=== PATIENT | female | born 1985 ===

== ENCOUNTER 2020-04-23 13:00 | Inpatient (IN) | payer OTHER ==
[~2020-04-23] VITALS: Ht 167.6 cm; Wt 83.5 kg
[2020-05-12] MEDS ORDERED: PRENATAL CAPLE1 EAC1 PO (16:34)
== END 2020-05-15 14:43 | disposition home or self-care (01) | DRG 807 ==
LOC: OB/GYN 05-12 13:00 → LDR 05-12 16:03 → OB/GYN 05-13 14:40 → O/R 05-13 16:46 → OB/GYN 05-13 16:47
PROVIDERS: ADMIT Obstetrics & Gynecology Maternal & Fetal Medicine; ATTEND Obstetrics & Gynecology Maternal & Fetal Medicine
PROC: 10E0XZZ Delivery of Products of Conception, External Approach (ICD-10-PCS; principal; 2020-05-12)
PROC: 3E033VJ Introduction of Other Hormone into Peripheral Vein, Percutaneous Approach (ICD-10-PCS; 2020-05-12)
PROC: 4A1HXFZ Monitoring of Products of Conception, Cardiac Rhythm, External Approach (ICD-10-PCS; 2020-05-12)
DX: O70.1 Second degree perineal laceration during delivery (principal); Z37.0 Single live birth; Z3A.40 40 weeks gestation of pregnancy; Z20.822 Contact with and (suspected) exposure to COVID-19

== ENCOUNTER 2020-05-04 09:38 | Outpatient (CLI) | payer OTHER | END 2020-05-04 10:21 | disposition home or self-care (01) | LOC: NST 09:38 | PROVIDERS: ATTEND Obstetrics & Gynecology Maternal & Fetal Medicine | DX: Z34.83 Encounter for supervision of other normal pregnancy, third trimester (principal) ==